=== PATIENT | female | born 1950 | race African-American/Black ===

== ENCOUNTER 2025-07-02 12:37 | Outpatient (AMB) | payer MEDICARE, MEDICAID, SELFPAY ==
[2025-07-02 12:54] VITALS: BP 168/88; RESP 16; BMI 33.9
--- NOTE | 2025-07-02 12:54 | AM.OFFVISMDC ---
Intake Vital Signs 07/02/25 12:54 07/02/25 13:29 Height 5 ft 8 in Weight 223 lb 4 oz BMI 33.9 BP 168/88 H 138/68 Blood Pressure Location Lt brachial Lt brachial Position Sitting Sitting Respiration 16 Intake Visit Reasons: Annual, medicare wellness visit Jira Developer Required: No Accompanied by: Self / Same As Patient Allergies No Known Allergies Allergy (Verified 07/02/25 12:56) Medication List - Last Reconciled 07/02/25 by Torri Ferrell MD amlodipine 10 mg PO DAILY atorvastatin 10 mg PO DAILY hydrochlorothiazide 25 mg PO DAILY Tobacco/Smoking Status Tobacco use date assessed: 07/02/25 Patient Tobacco Use Status: Never used Tobacco Fall Risk Assessment Fall risk assessment: No Falls in past year Date Fall Risk Assessed: 07/02/25 HPI HPI Comments History of Present Illness Details The patient is a 75 year old female presenting for a medicare wellness visit. Health Risk Assessment Completed. No opioid use. No cognitive deficits. Hypertension: The patient is taking amlodipine 10 mg and hydrochlorothiazide 25 mg for her blood pressure. She reports compliance with her medications and monitoring her salt intake. Hypercholesterolemia: The patient is prescribed atorvastatin 10 mg for cholesterol management. Peripheral Edema: She takes hydrochlorothiazide 25 mg for swelling in her legs and reports doing well with it. Aortic Stenosis: The patient has a known heart murmur, and a prior echocardiogram showed aortic stenosis. She is asymptomatic, denying any chest pain or shortness of breath. Health Maintenance: The patient is overdue for a colonoscopy, was waiting to be scheduled at [facility] but was on waitlist. She has not had a Pap smear for many years prior to turning 67. Therefore had no reliable history of normal paps. Her last mammogram was in the , and her next one is due in December 2025. She has not yet received a Tdap or RSV vaccination. She reports having had her pneumonia shot. Weight Management: The patient has lost 10 pounds, with her current weight at 223 pounds. She attributes this weight loss to stopping her food intake at 6 p.m. and avoiding sweets and sodas. [facility] Medical History (Updated 07/02/25 @ 13:12 by Torri Ferrell MD) Screening for colon cancer Routine gynecological examination Vitamin D deficiency Aortic stenosis Impaired fasting glucose Subclinical hypothyroidism Primary hypertension Surgical History (Updated 06/30/25 @ 06:48 by Latha Alston) History of colonoscopy (~11/19/13) Family History (Updated 07/02/25 @ 12:53 by Torri Ferrell MD) Other Breast cancer Diabetes mellitus Hyperlipidemia, unspecified Primary hypertension Social History Patient Tobacco Use Status: Never used Tobacco Questionnaire Medicare Wellness Checkup [age] What gender do you identify with?: female During the past 4 weeks, how much have you been bothered by emotional problems such as feeling anxious, depressed, irritable, sad or downhearted, and blue?: not at all During the past 4 weeks, has your physical & emotional health limited your social activities with family, friends, neighbors, or groups?: not at all During the past 4 weeks, how much bodily pain have you generally had?: no pain During the past 4 weeks, was someone available to help you if you needed & wanted help?: yes, as much as I wanted During the past 4 weeks, what was the hardest physical activity you could do for at least 2 minutes?: very heavy Can you get to places out of walking distance without help? (For eg., can you travel alone on buses, taxis or drive your car?): Yes Can you go shopping for groceries or clothes without someone's help?: Yes Can you prepare your own meals?: Yes Can you do your housework without help?: Yes Because of any health problems, do you need the help of another person with your personal care needs such as eating, bathing, dressing or getting around the house?: No Can you handle your own money without help?: Yes During the past 4 weeks, how would you rate your health in general?: good During the past 4 weeks how have things been going for you?: very well; could hardly better Are you having difficulties driving your car?: not applicable, I don't use a car Do you always fasten your seat belt when you are in a car?: yes, usually During past 4 weeks, have you been bothered by the following: never: Falling or dizzy when standing up, Sexual problems?, Trouble eating well?, Teeth or denture problems?, Problems using the telephone? and Tiredness or fatigue? Have you fallen 2 or more times in the past year?: No Are you afraid of falling?: No Are you a smoker?: no During the past 4 weeks, how many drinks of wine, beer, or other alcoholic beverages did you have?: no alcohol at all Do you exercise for about 20 minutes 3 or more times a week?: yes, some of the time Have you been given information to help with the following?: no: Hazards in your house that might hurt you? and no: Keeping track of your medications? How often do you have trouble taking medicines the way you have been told to take them?: I always take medicine as prescribed How confident are you that you can control & manage most of your health problems?: very confident What is your race?: Black or PHQ-9 Over the last 2 weeks, how often have you been bothered by any of the following problems? 1. Little interest or pleasure in doing things: not at all 2. Feeling down, depressed, or hopeless: not at all 3. Trouble falling or staying asleep, or sleeping too much: not at all 4. Feeling tired or having little energy: not at all 5. Poor appetite or overeating: not at all 6. Feeling bad about yourself - or that you are a failure or have let yourself or your family down: not at all 7. Trouble concentrating on things, such as reading the newspaper or watching television: not at all 8. Moving or speaking so slowly that other people could have noticed. Or the opposite - being so fidgety or restless that you have been moving around a lot more than usual: not at all 9. Thoughts that you would be better off or of hurting yourself in some way: not at all Total score: 0 Depression Screening Interpretation: Negative Depression Screening Done: Yes 00418 - PHQ-9 Billing: Yes Source: Developed by Drs. Gerard Salinas, Brunilda Marcelo, Wilfredo Swift and colleagues, with an educational catia from [employer]. Thrive Questionnaire Date Thrive assessed: 07/02/25 I am a: Patient What is your living situation today?: I have a steady place to live Within the past 12 months, did the food you bought not last and you didn't have the money to get more?: Never true Within the past 12 months, did you worry whether your food would run out before you got money to buy more?: Never true Do you have trouble paying for medicines?: No Do you have trouble getting transportation to medical appointments?: No Do you have trouble paying your heating and electricity bill?: No Do you have trouble taking care of your child, family member or friend?: No Do you have trouble with day-to-day activities such as bathing, preparing meals, shopping, managing finances, etc.?: No Are you currently unemployed and looking for a job?: No Are you interested in more education?: No Please select the resources that you would like help with: None Currently or been in a relationship where the following occur: No concerns reported THRIVE Score: 0 DEANDRE-7 AMB Questionnaire DEANDRE-7 Date DEANDRE - 7 assessed: 07/02/25 Feeling nervous, anxious, or on edge: 0 = Not at all Not being able to stop or control worryin = Not at all Worrying too much about different things: 0 = Not at all Trouble relaxin = Not at all Being so restless that it is hard to sit still: 0 = Not at all Becoming easily annoyed or irritable: 0 = Not at all Feeling afraid as if something awful might happen: 0 = Not at all Total DEANDRE-7 score (0-4 normal; 5-9 mild; 10-14 moderate; 15-21 severe): 0 Source: Developed by Drs. Gerard Salinas, Brunilda Marcelo, Wilfredo Swift and colleagues, with an educational catia from [employer]. AUDIT C Alcohol Use Questionnaire (AUDIT-C) 1. How often do you have a drink containing alcohol?: Never 3. How often do you have six or more drinks on one occasion?: Never Total Score: 0 Review of Systems Narrative Review of Systems - Constitutional: Denies issues. - Cardiovascular: Denies chest pain. - Respiratory: Denies shortness of breath. - Psychiatric: Denies symptoms of depression and anxiety. Physical Exam Exam Exam: Physical Exam - Vitals: Blood pressure is 134/68 mmHg. - HEENT: Left ear is clear. Right ear has cerumen impaction. No redness noted. - Neck: Supple. No cervical lymphadenopathy. Thyroid is normal upon palpation. No carotid bruits, but murmur radiation is present. - Lungs: Clear to auscultation bilaterally, no wheezing. - Cardiovascular: A murmur was heard on auscultation with radiation to carotids. - Abdomen: Soft, non-distended, and non-tender with normal bowel sounds. - Extremities: Mild swelling in both ankle areas. Vital Signs: Last Vital Signs Resp 16 07/02/25 12:54 BP 138/68 07/02/25 13:29 BMI result Body Mass Index 33.9 Assessment & Plan Assessment & Plan (1) Primary hypertension: Code(s): I10 - Essential (primary) hypertension Plan Assessment and Plan 1. Wellness Visit/Health Maintenance - The patient is a 75-year-old female presenting for a wellness visit. - She is due for several health screenings. - Plan includes: a referral to gastroenterology for a colonoscopy, a referral to gynecology for a Pap smear, and an order for routine fasting labs and urinalysis to be done today. - The patient is also advised to get her Tdap and RSV immunizations. 2. Hypertension - Her blood pressure is well-controlled at 134/68 mmHg on amlodipine and hydrochlorothiazide. - She reports medication adherence and dietary salt restriction. - Plan is to continue current medications, and refills will be sent to her pharmacy. 3. Hypercholesterolemia - She is managed on atorvastatin 10 mg. Plan is to continue the current medication, send refills, and check a fasting lipid panel with today's labs. 4. Aortic Stenosis - The patient has a known history of a heart murmur consistent with aortic stenosis. - She remains asymptomatic. - Plan is to order a follow-up echocardiogram 5. Peripheral Edema - Mild bilateral ankle edema persists despite treatment with hydrochlorothiazide and salt restriction. - Plan is to continue current management and monitor. 6. Weight Management - The patient has achieved a 10-pound weight loss through dietary modifications, including portion control and time-restricted eating. - Plan is to encourage her to continue these successful lifestyle changes. 7. Cerumen Impaction, Right Ear - Examination revealed cerumen in the right ear. - Plan is to prescribe Debrox drops and instruct the patient on their use to soften the wax. Plan - Refer patient to Gastroenterology for a colonoscopy. - Refer patient to Gynecology for a women's health exam and Pap smear. - Order routine fasting labs and a urine test to be completed today. - Order a follow-up echocardiogram to monitor aortic stenosis. - Advise patient to obtain Tdap and RSV immunizations at her pharmacy. - Send a prescription for Debrox drops for right ear cerumen impaction. Patient Instructions - Please go to the main hospital building today to have your blood work and urine test done, as you are already fasting. - Continue taking your amlodipine, atorvastatin, and hydrochlorothiazide as prescribed. - You will receive phone calls to schedule several appointments: a colonoscopy with a GI specialist, a Pap smear with a gynecology provider, and an ultrasound of your heart (echocardiogram). Please make sure to get these done. - Let me know if you experience any new or worsening shortness of breath. - Go to your pharmacy to get a Tdap (tetanus) shot and an RSV shot. - Use Debrox ear drops in your right ear to help soften the wax. You can buy this [id number]-atamiie at the pharmacy if the prescription is not covered. - Continue with your healthy diet, including watching your salt intake and not eating after 6 p.m. to help manage your weight and blood pressure. Orders: Orders Complete Blood Count Auto Diff Today E03.8 - Other specified hypothyroidism, I10 - Essential (primary) hypertension, R73.01 - Impaired fasting glucose TSH reflex Free T4 Today E03.8 - Other specified hypothyroidism, I10 - Essential (primary) hypertension, R73.01 - Impaired fasting glucose Vitamin D 25-OH Total Today E55.9 - Vitamin D deficiency, unspecified CA echo transthoracic complete Today I35.0 - Nonrheumatic aortic (valve) stenosis Comprehensive Met. Panel Today E03.8 - Other specified hypothyroidism, I10 - Essential (primary) hypertension, R73.01 - Impaired fasting glucose Lipid Panel Today E03.8 - Other specified hypothyroidism, I10 - Essential (primary) hypertension, R73.01 - Impaired fasting glucose Microalbumin, Random (w Creat) Today E03.8 - Other specified hypothyroidism, I10 - Essential (primary) hypertension, R73.01 - Impaired fasting glucose Referrals Gastroenterology Referral Z12.11 - Encounter for screening for malignant neoplasm of colon [employer]GER Referral Z01.419 - Encounter for gynecological examination (general) (routine) without abnormal findings Medications: New amlodipine 10 mg PO DAILY 90 tabs 3RF hydrochlorothiazide 25 mg PO DAILY 90 tabs 3RF atorvastatin 10 mg PO DAILY 90 tabs 3RF carbamide peroxide 6.5% (Debrox) 5 drps otic (ear) right BID 15 mL 0RF 4 days Quality Reporting (2019) Fall Risk Screening ([facility] 139) Last assessed Fall Risk: 07/02/25 Fall risk assessment: No Falls in past year Depression/Bipolar (159/160/161/177) PHQ-9: Total score: 0 Coding Level of Care Code Medicare Subsequent (G0439) Add On Problem Visit Only Diagnoses Primary hypertension I10 Additional Codes PHQ-9 - 12493 - PHQ-9 Billing: Yes ([id number]) Comment needs to have G2211 code also, however title of this add on needs to change for [facility]
[2025-07-02 13:29] VITALS: BP 138/68
== END 2025-07-02 13:35 | disposition home or self-care (01) ==
LOC: HO.HMCHD 12:37
PROVIDERS: PCP Internal Medicine; Visit Provider Internal Medicine
DX: I10 Essential (primary) hypertension (principal)

== ENCOUNTER 2025-07-02 12:37 | Outpatient (REF) | payer MEDICARE, MEDICAID, SELFPAY ==
[2025-07-02 14:09] LABS: MANUAL DIFF FLAG NO
[2025-07-02 14:47] LABS: Hematocrit 46.2 % (37.0-47.0); Hemoglobin 15.1 g/dl (12.0-16.0); Imm Gran Abs Auto 0.03 X10*3/uL (0.00-0.03); Imm Gran Pct Auto 0.3 % (0.0-0.4); Lymphocytes Absolute Auto 2.1 X10*3/uL (1.2-4.9); Mean Corpuscular HGB Conc 32.7 g/dl (31.0-35.0); Mean Corpuscular Hemoglobin 28.7 pg (27.0-33.0); Mean Corpuscular Volume 87.8 fL (80.0-98.0); NRBC Abs Auto 0.000 X10*3/uL (0.0-0.012); NRBC Pct Auto 0.0 /100WBC (0.0-0.2); Platelet Count 303 X10*3/uL (160-400); Red Blood Count 5.26 X10*6/uL (4.20-5.50); White Blood Count 12.0 X10*3/uL (4.8-10.8)
[2025-07-02 15:32] LABS: Microalbum/Creatinine Ratio Ur 9.0 ug/mg cr (<30)
[2025-07-02 15:47] LABS: Alanine Aminotransferase 10 U/L (0-31); Albumin Level 4.4 g/dL (3.5-5.0); Alkaline Phosphatase 49 U/L (39-117); Anion Gap 14 (12-20); Aspartate Amino Transferase 17 U/L (5-31); Blood Urea Nitrogen 15 mg/dL (9-16); Calcium 9.6 mg/dL (8.4-10.2); Carbon Dioxide 32 mmol/L (22-29); Chloride 100 mmol/L (96-108); Cholesterol 157 mg/dL (<200); Estimated Glomerular Filt Rate > 60; HDL Cholesterol 50 mg/dL (>40); Potassium 3.6 mmol/L (3.3-5.1); Sodium 142 mmol/L (135-145); Total Protein 8.2 g/dL (6.5-8.0); Triglycerides 71 mg/dL (<150)
== END 2025-07-02 12:38 | disposition home or self-care (01) ==
LOC: HO.LAB 12:37
PROVIDERS: PCP Internal Medicine; Visit Provider Internal Medicine
DX: Z01.419 Encounter for gynecological examination (general) (routine) without abnormal findings (principal); I10 Essential (primary) hypertension; E03.8 Other specified hypothyroidism; E55.9 Vitamin D deficiency, unspecified; I35.0 Nonrheumatic aortic (valve) stenosis; E78.00 Pure hypercholesterolemia, unspecified; R60.0 Localized edema; H61.21 Impacted cerumen, right ear; R73.01 Impaired fasting glucose; Z79.899 Other long term (current) drug therapy
CPT/HCPCS: 36415; 80053; 80061; 82043; 82306; 82570; 84443; 85025